=== PATIENT | male | born 1985 | race African-American/Black ===

== ENCOUNTER 2022-03-17 19:37 | Emergency (ER) | payer OTHER, SELFPAY ==
[2022-03-17 19:45] VITALS: BP 128/75; PULSE 77; RESP 18; TEMP 37.3; O2SAT 100; BMI 25.0
[2022-03-17 20:29] LABS: COVID19 -Nasal RAPID POSITIVE (Negative)
--- NOTE | 2022-03-17 20:33 | ED_ITS ---
HPI - General Adult General Chief complaint: Fever Stated complaint: not in the best shape, aches/pain Time Seen by Provider: 03/17/22 20:07 Source: patient Mode of arrival: Wheelchair History of Present Illness HPI narrative: Otherwise healthy 36-year-old male. Is unvaccinated against COVID-19 who is here for evaluation of a couple days of body aches and pains. No fevers. No cough. No problems breathing. No diarrhea. No urinary symptoms. Has not tried anything for symptoms prior to arrival. Review of Systems Constitutional Constitutional: Reports system reviewed and no additional complaints, except as documented Respiratory Respiratory: Reports system reviewed and no additional complaints, except as documented Gastrointestinal Gastrointestinal: Reports system reviewed and no additional complaints, except as documented Musculoskeletal Musculoskeletal: Reports system reviewed and no additional complaints, except as documented Patient History Medical History Healthy adult Social History Smoking Status: Never smoker Smoking Status: Never smoker Substance Use Type: does not use Exam Initial Vital Signs Initial Vital Signs: Vital Signs Temperature 99.2 F 03/17/22 19:45 Pulse Rate 77 03/17/22 19:45 Respiratory Rate 18 03/17/22 19:45 Blood Pressure 128/75 03/17/22 19:45 Pulse Oximetry 100 03/17/22 19:45 Oxygen Delivery Method 03/17/22 19:45 HENMT Head: normal to inspection and normocephalic Resp Effort & Inspection: normal respiratory effort Auscultation: clear to auscultation bilaterally Cardio Rate: regular rate Rhythm: regular rhythm Skin General: no rashes or lesions noted Extrem General: normal to inspection and capillary refill normal Course Orders Ordered: ED Orders 03/17/22 19:56 COVID19 -Nasal RAPID/Pre-Proc Urgent Vital Signs Vital signs: Vital Signs - 8 hr 03/17/22 19:45 Temperature 99.2 F Pulse Rate 77 Respiratory Rate 18 Blood Pressure 128/75 Pulse Oximetry 100 Oxygen Delivery Method Room Air Medical Decision Making Lab Data Labs: Lab Results 03/17/22 Range/Units 19:56 SARS-CoV-2 (PCR) Positive H (Negative) MDM Narrative Medical decision making narrative: Patient is COVID positive. He was informed this diagnosis. We did discuss current CDC guidelines with regard to quarantine. No indication for a ntibiotics. No respiratory distress. Patient was discharged home. Discharge Plan Departure Patient Disposition: Home Clinical Impression: COVID-19 Instructions: DI for COVID-19 (Suspected or Confirmed ) Activity Restrictions/Additional Instructions: Your COVID test today was positive. Please follow current CDC guidelines with regard to quarantine. You can take Tylenol/ibuprofen for any fevers or body aches. Be sure to stay hydrated. Return to the emergency department for any new symptoms Visit Report Forms: Patient Portal/API
== END 2022-03-17 20:37 | disposition home or self-care (01) ==
PROVIDERS: Emergency Provider Emergency Medicine
DX: U07.1 COVID-19 (principal)
CPT/HCPCS: 87635; 99281; 99282; C9803

== ENCOUNTER 2023-02-09 20:31 | Emergency (ER) | payer OTHER, SELFPAY ==
[2023-02-09 20:33] VITALS: BP 141/76; PULSE 117; RESP 20; TEMP 37.3; O2SAT 98; BMI 23.6
--- NOTE | 2023-02-09 23:25 | PC.NURSE ---
Attempted to find patient in waiting room. Security also looked for patient and was unable too. Marked as VDC.
== END 2023-02-09 23:25 | disposition left against medical advice (07) ==
PROVIDERS: Emergency Provider Emergency Medicine
CPT/HCPCS: 99281